=== PATIENT | female | born 1970 | race African-American/Black ===

== ENCOUNTER 2017-12-23 10:43 | Emergency (ER) | payer SELFPAY ==
[~2017-12-23] VITALS: Ht 154.9 cm; Wt 84.8 kg
[2017-12-23 10:45] VITALS: BP 106/70; PULSE 90; RESP 18; TEMP 98; O2SAT 98
[2017-12-23] MEDS ORDERED: RESP: ALBUTEROL 2.5 MG/IPRATROPIUM 0.5 MG NEB (SCH) INH ONE (11:00)
[2017-12-23] MEDS ORDERED: predniSONE 20 MG TAB PO ONE (11:00)
[2017-12-23] MEDS ORDERED: OSEL75 PO (11:02)
[2017-12-23] MEDS ORDERED: PRED20 PO (11:02)
[2017-12-23] MEDS ORDERED: ALBUAER3 INH (11:02)
[2017-12-23] MEDS ORDERED: DICL75TA PO (11:02)
--- NOTE | 2017-12-23 11:23 | PD ---
HPI Chief Complaint: Cold / Flu Symptoms Time Seen by Provider: 10:55 Travel History International Travel<30 days: No Contact w/Intl Traveler<30days: No Traveled to known affect area: No History of Present Illness HPI 39-year-old female that presents to the ED for evaluation of cold-like symptoms and body aches. Per patient she's had this for about 3 days now. This is the third day. She's been having body aches. She has a sister who was admitted to the hospital for severe flu. She has been in contact with this patient. Per patient she does not get any "shots". So she has not gotten a flu shot vaccination recently. She states that she has a history of asthma but currently has no inhalers. She states that she gets short of breath with wheezing and has been worsening for the past 3 days. No allergies to medication. Has cough that is productive. Has not seen her doctor for this. No urinary or bowel movement issues. No abdominal pain. Per patient she does have some discomfort with the cough and has body aches throughout the body which she rates as 10 out of 10. She states having some sore throat as well. No ear pain. No recent travel. Has been taking OTC meds with some relief. PFSH Past Medical History Diminished Hearing: No Hypertension: Yes Tetanus Vaccination: < 5 Years ?: Not Past Surgical History Surgical History: No Previous Surgery Social History Alcohol Use: Yes (VERY RARE) Tobacco Use: No Substance Use: No Allergies-Medications (Allergen,Severity, Reaction): Coded Allergies: No Known Allergies (Verified Allergy, Unknown, 12/23/17) Reported Meds & Prescriptions Reported Meds & Active Scripts Active Proair Hfa 8.5 GM Inh (Albuterol Sulfate) 90 Mcg/Act Aer 2 Puff INH Q4-6H PRN 108 mcg/actuation Prednisone 20 Mg Tab 20 Mg PO BID [address] (Diclofenac Sodium) 75 Mg Tabdr 75 Mg PO BID PRN Tamiflu (Oseltamivir Phosphate) 75 Mg Cap 75 Mg PO BID 5 Days Review of Systems Except as stated in HPI: all other systems reviewed are Neg Physical Exam Narrative GENERAL: Well-nourished, well-developed patient in no apparent distress. SKIN: Warm and dry. HEAD: Atraumatic. Normocephalic. EYES: Pupils equal and round reactive to light and accommodation. No scleral icterus. No injection or drainage. ENT: No nasal bleeding or discharge. Mucous membranes pink and moist. TMs are clear with no sign of infection or perforation. No mastoid tenderness. Ear canals are intact bilaterally. No lymphadenopathy. Nostril mucosa is red and moist with clear mucus noted. No sinus tenderness to palpation noted. Tonsils are not enlarged or swollen. No ulvua Deviation. Tongue is midline. NECK: Trachea midline. No JVD. No meningeal signs noted CARDIOVASCULAR: Regular rate and rhythm. RESPIRATORY: No accessory muscle use. Mild wheezing heard with expiration Breath sounds equal bilaterally. GASTROINTESTINAL: Abdomen soft, non-tender, nondistended. Hepatic and splenic margins not palpable. MUSCULOSKELETAL: Extremities without clubbing, cyanosis, or edema. No obvious deformities. NEUROLOGICAL: Awake and alert. No obvious cranial nerve deficits. Motor grossly within normal limits. Five out of 5 muscle strength in the arms and legs. Normal speech. PSYCHIATRIC: Appropriate mood and affect; insight and judgment normal. Data Data Last Documented VS Vital Signs Date Time Temp Pulse Resp B/P (MAP) Pulse Ox O2 Delivery O2 Flow Rate FiO2 12/23/17 10:45 98.0 90 18 106/70 (82) 98 Orders Orders Influenzae A/B Antigen (12/23/17 10:53) Chest, Single Ap (12/23/17 10:59) Prednisone (Deltasone) (12/23/17 11:00) Albuterol-Ipratropium Neb (Duoneb Neb) (12/23/17 11:00) MDM Medical Decision Making Medical Screen Exam Complete: Yes Emergency Medical Condition: Yes Medical Record Reviewed: Yes Interpretation(s) Influenza was negative. Chest x-ray was negative for acute disease. Differential Diagnosis Influenza versus pneumonia versus bronchitis versus asthma exacerbation versus viral illness Narrative Course 39-year-old female that presents to the ED for evaluation of cold-like symptoms. Patient was properly examined and was found to have signs and symptoms consistent with appears to be likely influenza. Flu test and chest x- ray were ordered. Patient was given breathing treatments and prednisone here. Labs and imaging were consistent with bronchitis. Influenza was negative. Patient will be treated for this with albuterol inhaler, prednisone, diclofenac sodium for discomfort as well as azithromycin to cover for bacterial illness. She was told to follow closely with PCP. See ED worsening symptoms. Work note was given. Diagnosis Primary Impression: Bronchitis Patient Instructions: General Instructions Departure Forms: Tests/Procedures, Work Release Enter return to work date: Dec 27, 2017 Additional Instructions: Motrin and Tylenol for pain and fever. You can use [id number] antihistamine as well as well as Mucinex as needed for runny nose and congestion. Cough drops for cough as needed. Drink plenty of fluids. Follow-up with PCP. See ED for worsening symptoms. Med/Other Pt SpecificInfo: Prescription(s) given Scripts Albuterol 8.5 GM Inh (Proair Hfa 8.5 GM Inh) 90 Mcg/Act Aer 2 PUFF INH Q4-6H Y for SHORTNESS OF BREATH, #1 INHALER 0 Refills 108 mcg/actuation Prov: Frederic Jones MD 12/23/17 Prednisone (Prednisone) 20 Mg Tab 20 MG PO BID for 5 Days, #10 TAB 0 Refills Prov: Frederic Jones MD 12/23/[address] (Diclofenac Sodium DR) 75 Mg Tabdr 75 MG PO BID Y for PAIN SCALE 1 TO 10, #20 TAB 0 Refills Prov: Frederic Jones MD 12/23/17 Oseltamivir (Tamiflu) 75 Mg Cap 75 MG PO BID for Mgmt Viral Infection for 5 Days, #10 CAP 0 Refills Prov: Frederic Jones MD 12/23/17 Disposition: 01 DISCHARGE HOME Condition: Stable Jeferson Pineda Dec 23, 2017 11:23
[2017-12-23] MEDS ORDERED: AZIT250T3 PO (11:35)
--- NOTE | 2017-12-23 12:00 | RADRPT ---
EXAM DATE/TIME: 12/23/2017 11:50 [facility] COMPARISON: No previous studies available for comparison. INDICATIONS : Flu like symptoms. Productive cough and fever for three days. MEDICAL HISTORY : Hypertension. SURGICAL HISTORY : None. ENCOUNTER: Initial ACUITY: 3 days PAIN SCORE: 0/10 LOCATION: Bilateral chest FINDINGS: A single view of the chest demonstrates the lungs to be symmetrically aerated without evidence of mas s, infiltrate or effusion. The cardiomediastinal contours are unremarkable. Osseous structures are intact. CONCLUSION: 1. No acute cardiopulmonary disease. Juarez Lagunas MD on December 23, 2017 at 11:57 Board Certified Radiologist. This report was verified electronically.
== END 2017-12-23 12:28 | disposition home or self-care (01) ==
LOC: PHEFT 10:43
DX: J40 Bronchitis, not specified as acute or chronic (principal); I10 Essential (primary) hypertension
CPT/HCPCS: 71045; 87804; 94664; 99284; J7512